=== PATIENT | female | born 2000 | race Caucasian/White ===

== ENCOUNTER 2021-12-13 12:34 | Emergency (ER) | payer BC, SELFPAY ==
[2021-12-13 13:04] VITALS: BP 119/76; PULSE 84; RESP 14; TEMP 36.9; O2SAT 98; BMI 27.4
[2021-12-13] MEDS: Erythromycin Base 0.5% Oph Oin 1 GM TUBE 1 CM EYE-BOTH (13:40)
--- NOTE | 2021-12-13 13:46 | ED.MEDCLEAR ---
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 She was performing and I&D of an abscess to the ER patient's right scalp/forehead and when she was apply manual pressure the ER patient's abscess bursted in the students face. She immediately rinsed off her face/eyes and use the eye wash station. We are unsure if blood with into her eye. Patient denies any other symptoms complaints or concerns at this time. MD complaint: other ( Post exposure bodily fluids) Onset (ago): minute(s) ( prior to arrival) Treatments Prior to Arrival: other ( see above) Related Information Previous Rx's Medication Instructions Recorded cephalexin 500 mg capsule 500 mg PO Q6H 7 days #28 caps 12/13/21 doxycycline monohydrate 100 mg 100 mg PO BID 7 days #14 tabs 12/13/21 tablet erythromycin 5 mg/gram (0.5 %) eye 0.5 inch ophthalmic (eye) QID 12/13/21 ointment Bacterial conjunctivitis 7 days #3.5 grams Allergies Allergy/AdvReac Type Severity Reaction Status Date / Time No Known Allergies Allergy Verified 12/13/21 12:38 Review of Systems Review of Systems: + bodily fluid exposure to face/eye. Yes all other systems are reviewed and are negative PMFSH Past Medical History Attestation statement: The following information was validated with the patient. Source: old records reviewed and nursing notes reviewed Social History Social History Advance Directives: Yes Advance Directives Information Provided: Yes Advance Directives on File: No Physical Exam Vital Signs: Vital Signs: Last Vital Signs Temp 98.5 F 12/13/21 13:04 Pulse 84 12/13/21 13:04 Resp 14 12/13/21 13:04 BP 119/76 12/13/21 13:04 Pulse Ox 98 12/13/21 13:04 O2 Del Method 12/13/21 13:04 BMI result Body Mass Index 27.4 vital signs have been reviewed as normal and appeared to be correct. Blood pressure normal Heart rate normal. Respiration rate normal. Temperature normal. Oxygen saturation normal. Appearance: Alert. Oriented X3. No acute distress. Head: Normal external exam. Normocephalic. Atraumatic. Eyes: PERRLA. EOMI. Conjunctiva and sclera normal. Eyelids normal. ENT: Pharynx normal. Uvula midline. Moist mucous membranes. Neck: Normal inspection. Neck supple. FROM. CVS: Normal heart rate and rhythm. Respiratory: No respiratory distress. Painless inspiration. Skin: Skin warm and dry. Normal skin color. Normal skin turgor. No rashes/lesions/lacerations noted. Extremities: Extremities exhibit normal range of motion. Extremities nontender. Neuro: Oriented X 3. No motor deficit. No sensory deficit. Normal steady gait. Course Course Course Narrative: We were able to obtain permission from the source and obtain his blood for hepatitis B/ hepatitis-C and HIV. Will also obtain this patient's blood. We will also give this patient the HIV post prophylactic kit. Erythromycin for her left eye. Along with antibiotics for possible infection due to she was I&D in an abscess. She will also have to follow up with [facility]. She understands agrees with this plan. MDM - Medical Clearance Medical Records Attestation: I reviewed the patient's medical records. Lab Data Attestation: I reviewed the patient's lab results. Labs: Lab Results 12/13/21 Range/Units 13:52 Beta HCG, Quant < 2 mIU/mL Discharge Plan Discharge Clinical Impression: Exposure to blood or body fluid Patient Disposition: Home, Self-Care Instructions: Body Substance Exposure (ED) Prescriptions: New doxycycline monohydrate 100 mg tablet 100 mg PO BID 7 Days Qty: 14 0RF cephalexin 500 mg capsule 500 mg PO Q6H 7 Days Qty: 28 0RF erythromycin 5 mg/gram (0.5 %) ointment 0.5 inch ophthalmic (eye) QID 7 Days Qty: 3.5 0RF Referrals: [facility] [Provider Group] ( Call to make a follow-up appointment within 24-48 hours)
[2021-12-13 14:23] LABS: HCG Quantitative < 2 mIU/mL
[2021-12-13] MEDS: cephALEXin 500 MG CAPSULE PO (14:30)
[2021-12-14 05:09] LABS: HBc Num1 0.58 S/CO (0.00-0.79); HBsAGNum1 1.53 S/CO (0.00-0.99); HIV AB/AG Nonreactive (Nonreactive); HIV Num 1 0.39 S/CO (0.00-0.99); Hepatitis B Core Antibody Nonreactive (Nonreactive); ~HepC Num1 0.19 S/CO (0.00-0.79); ~Hepatitis B Surface Antibody REACTIVE (Nonreactive); ~Hepatitis C Antibody Nonreactive (Nonreactive)
[2021-12-14 06:18] LABS: HBsAGNum2 Nonreactive; HBsAGNum3 Nonreactive; Hepatitis B Surface Antigen NEGATIVE (Negative)
== END 2021-12-13 16:04 | disposition home or self-care (01) ==
PROVIDERS: Physician Assistant Medical; Emergency Provider Emergency Medicine
DX: Z77.21 Contact with and (suspected) exposure to potentially hazardous body fluids (principal); Z79.899 Other long term (current) drug therapy
CPT/HCPCS: 36415; 84702; 86704; 86706; 86803; 87340; 87389; 99283